=== PATIENT | male | born 1995 | race Caucasian/White ===

== ENCOUNTER 2023-07-05 09:31 | Emergency (ER) | payer MEDICAID ==
[2023-07-05 11:26] LABS: AMPHETAMINES SCREEN, URINE NEGATIVE (NEGATIVE); BARBITURATE SCREEN,URINE NEGATIVE (NEGATIVE); BENZODIAZEPINES SCREEN,URINE NEGATIVE (NEGATIVE); METHADONE SCREEN, URINE NEGATIVE (NEGATIVE); METHAMPHETAMINES SCREEN, URINE NEGATIVE (NEGATIVE); OXYCODONE SCREEN,URINE NEGATIVE (NEGATIVE); PROPOXYPHENE SCREEN,URINE NEGATIVE (NEGATIVE); THC SCREEN,URINE 50 NG/ML PRESUMPTIVE POSITIVE (NEGATIVE)
== END 2023-07-05 12:40 | disposition home or self-care (01) ==
LOC: JP.ED 09:31
DX: U07.1 COVID-19 (principal); F10.239 Alcohol dependence with withdrawal, unspecified; F17.210 Nicotine dependence, cigarettes, uncomplicated; Z79.899 Other long term (current) drug therapy
CPT/HCPCS: 36415; 80305-QW; 80307; 99284; U0002

== ENCOUNTER 2023-07-18 06:07 | Emergency (ER) | payer MEDICAID ==
[2023-07-18] MEDS ORDERED: Ondansetron 4 MG Tab.DIS PO ONE (06:34)
[2023-07-18 07:19] LABS: AMPHETAMINES SCREEN, URINE NEGATIVE (NEGATIVE); BARBITURATE SCREEN,URINE NEGATIVE (NEGATIVE); BENZODIAZEPINES SCREEN,URINE NEGATIVE (NEGATIVE); METHADONE SCREEN, URINE NEGATIVE (NEGATIVE); METHAMPHETAMINES SCREEN, URINE NEGATIVE (NEGATIVE); OXYCODONE SCREEN,URINE NEGATIVE (NEGATIVE); PROPOXYPHENE SCREEN,URINE NEGATIVE (NEGATIVE); THC SCREEN,URINE 50 NG/ML PRESUMPTIVE POSITIVE (NEGATIVE)
== END 2023-07-18 09:08 ==
LOC: JP.ED 06:07
DX: F10.120 Alcohol abuse with intoxication, uncomplicated (principal); F17.210 Nicotine dependence, cigarettes, uncomplicated; Z79.899 Other long term (current) drug therapy
CPT/HCPCS: 36415; 80305; 80307; 99284; Q0162

== ENCOUNTER 2024-01-11 16:08 | Emergency (ER) | payer MEDICAID | END 2024-01-11 17:15 | disposition left against medical advice (07) | LOC: JP.ED 16:08 | DX: Z53.21 Procedure and treatment not carried out due to patient leaving prior to being seen by health care provider (principal) ==